=== PATIENT | male | born 1985 | race Two or more races ===

== ENCOUNTER 2024-09-29 15:58 | Emergency (ER) | payer SELFPAY ==
[~2024-09-29] VITALS: Ht 172.7 cm; Wt 91.0 kg
[2024-09-29 16:08] VITALS: O2SAT 98
[2024-09-29 16:35] LABS: BASOPHILS % 0.8 % (0.0-2.0); EOSINOPHILS % 2.5 % (0.0-5.0); HEMATOCRIT. 46.1 % (42.0-52.0); HEMOGLOBIN. 15.4 g/dL (14.0-18.0); LYMPHOCYTES % 37.5 % (20.0-50.0); MEAN CORPUSCULAR HEMOGLOBIN 28.8 pg (28.0-32.0); MEAN CORPUSCULAR HGB CONC 33.5 g/dL (31.0-37.0); MEAN CORPUSCULAR VOLUME 86.2 fL (80.0-94.0); MEAN PLATELET VOLUME 7.5 fl (7.4-10.4); MONOCYTES % 5.4 % (2.0-8.0); NEUTROPHILS % 53.8 % (40.0-76.0); PLATELET 211 x1000/uL (130-400); RED BLOOD CELL COUNT 5.35 mill/uL (4.7-6.1); RED CELL DISTRIBUTION WIDTH 13.1 % (11.6-14.6); WHITE BLOOD COUNT 7.8 x1000/uL (4.5-11.0)
[2024-09-29 16:46] LABS: CHLORIDE 110 mEq/L (98-107); POTASSIUM 3.8 mEq/L (3.5-5.1); SODIUM 143 mEq/L (136-145)
[2024-09-29 16:47] LABS: CARBON DIOXIDE 26 mEq/L (21-32)
[2024-09-29 16:48] LABS: CALCIUM 9.2 mg/dL (8.7-10.4)
[2024-09-29 16:52] LABS: GLUCOSE 99 mg/dL (70-105); UREA NITROGEN BLOOD 14 mg/dL (9-23)
[2024-09-29 17:20] LABS: TROPONIN I HIGH SENSITIVITY 16 ng/L (3.0-53)
[2024-09-29 18:28] VITALS: BP 169/99; PULSE 78; RESP 16; TEMP 37; O2SAT 98
== END 2024-09-29 18:28 | disposition home or self-care (01) ==
LOC: ER 15:58
DX: R00.2 Palpitations (principal); R07.89 Other chest pain
CPT/HCPCS: 36415; 80048; 84484; 85025; 93005; 99284

== ENCOUNTER 2025-01-01 18:06 | Emergency (ER) | payer SELFPAY ==
[~2025-01-01] VITALS: Ht 185.4 cm; Wt 108.0 kg
[2025-01-01 18:07] VITALS: O2SAT 99
[2025-01-01 18:10] VITALS: BP 176/94; PULSE 70; RESP 16; TEMP 36.5; O2SAT 100
[2025-01-01] MEDS ORDERED: CIPR2.5D20 LEFTEYE (20:30)
[2025-01-01] MEDS: TETRACAINE 0.5% OPHTH DROPS 4ML LEFTEYE ONE (20:32)
[2025-01-01] MEDS: FLUORESCEIN SODIUM 1MG/STRIP LEFTEYE ONE (20:32)
[2025-01-01] MEDS: CIPROFLOXACIN 0.3% OPHTH SOLN 2.5ML LEFTEYE ONE (21:00)
== END 2025-01-01 21:06 | disposition home or self-care (01) ==
LOC: ER 18:06
DX: S05.02XA Injury of conjunctiva and corneal abrasion without foreign body, left eye, initial encounter (principal); X58.XXXA Exposure to other specified factors, initial encounter; Y93.89 Activity, other specified; Y92.89 Other specified places as the place of occurrence of the external cause; Y99.8 Other external cause status
CPT/HCPCS: 99283